=== PATIENT | male | born 2000 | race Two or more races ===

== ENCOUNTER 2023-01-09 09:26 | Emergency (ER) | payer OTHER ==
[~2023-01-09] VITALS: Ht 175.3 cm; Wt 80.7 kg
== END 2023-01-09 12:05 | disposition home or self-care (01) ==
LOC: ER 09:26
PROVIDERS: General Practice
DX: J10.1 Influenza due to other identified influenza virus with other respiratory manifestations (principal); Z20.822 Contact with and (suspected) exposure to COVID-19

== ENCOUNTER 2023-02-24 18:44 | Emergency (ER) | payer OTHER ==
[~2023-02-24] VITALS: Ht 175.3 cm; Wt 83.9 kg
[2023-02-24 20:51] LABS: HEMATOCRIT 48.7 % (39.0-48.0); HEMOGLOBIN 16.6 g/dL (13-16.00); MEAN CELL VOLUME 86.2 fL (80.0-100.00); MEAN CORPUSCULAR HEMOGLOBIN 29.5 pg (27.00-32.0); MEAN CORPUSCULAR HGB CONC 34.2 g/dl (32.0-36.0); PLATELET COUNT 328 K/uL (150-450); RED BLOOD COUNT 5.65 M/uL (4.00-6.00); RED CELL DISTRIBUTION WIDTH 12.9 % (11.5-14.5)
[2023-02-24 21:12] LABS: ALBUMIN 4.9 gm/dL (3.4-5.0); BILIRUBIN TOTAL 0.76 mg/dL (0.3-1.2); CALCIUM 10.2 mg/dL (8.5-10.1); CREATININE SERUM 1.01 mg/dL (0.70-1.30); GFR 92.37; GLOBULINA 3.8 G/DL (2.4-3.5); POTASSIUM 4.08 mEq/L (3.5-5.1); TOTAL PROTEIN 8.7 gm/dL (6.4-8.2)
== END 2023-02-24 21:51 | disposition home or self-care (01) ==
LOC: ER 18:44
PROVIDERS: General Practice
DX: B34.9 Viral infection, unspecified (principal); Z20.822 Contact with and (suspected) exposure to COVID-19

== ENCOUNTER 2024-01-21 16:18 | Outpatient (CLI) | payer OTHER | END 2024-01-21 16:20 | disposition home or self-care (01) | LOC: RAD 16:18 | PROVIDERS: ATTEND General Practice | DX: M25.561 Pain in right knee (principal) ==

== ENCOUNTER 2024-02-02 12:34 | Outpatient (CLI) | payer OTHER ==
[2024-02-02 13:41] LABS: URINE APPEARANCE Clear; URINE BILIRRUBIN Negative (NEGATIVE); URINE BLOOD Negative; URINE COLOR Yellow; URINE GLUCOSE Negative (NEGATIVE); URINE KETONE Trace (NEGATIVE); URINE LEUKOCYTE Negative; URINE NITRATE Negative; URINE PROTEIN Trace (NEGATIVE); URINE UROBILINOGEN 0.2 E.U./dl
[2024-02-02 13:46] LABS: URINE BACTERIA 30.2 uL (0.0-1933); URINE EPITHELIAL CELLS 2.9 uL (0.0-38.8)
[2024-02-02 13:58] LABS: URINE RBC 1.9 uL (0.0-20.8)
== END 2024-02-02 20:20 | disposition home or self-care (01) ==
LOC: LAB 12:34
PROVIDERS: ATTEND General Practice
DX: N39.0 Urinary tract infection, site not specified (principal)

== ENCOUNTER 2024-10-24 22:15 | Emergency (ER) | payer OTHER ==
[~2024-10-24] VITALS: Ht 175.3 cm; Wt 79.4 kg
[2024-10-24] MEDS ORDERED: TETANUS & DIPHTHERIA TOX,ADULT 0.5 ML VIAL IM STA (23:15)
[2024-10-24] MEDS ORDERED: CEFAZOLIN SODIUM 1,000 MG VIAL IM STA (23:15)
[2024-10-24] MEDS ORDERED: KETOROLAC TROMETHAMINE 10 MG TABLET PO STA (23:36)
== END 2024-10-25 | disposition home or self-care (01) ==
LOC: ER 22:42
DX: S01.122A Laceration with foreign body of left eyelid and periocular area, initial encounter (principal); W50.0XXA Accidental hit or strike by another person, initial encounter; Y93.79 Activity, other specified sports and athletics; Y92.89 Other specified places as the place of occurrence of the external cause
CPT/HCPCS: 90471; 90714; J1670

== ENCOUNTER 2024-12-14 07:56 | Emergency (ER) | payer OTHER ==
[~2024-12-14] VITALS: Ht 175.3 cm; Wt 79.4 kg
[2024-12-14] MEDS ORDERED: DEXAMETHASONE SODIUM PHOSPHATE 4 MG/ML VIAL IM ONE (09:00)
[2024-12-14] MEDS ORDERED: KETOROLAC TROMETHAMINE 60 MG VIAL IM ONE (09:00)
[2024-12-14] MEDS ORDERED: IBUPROFEN800 MG PO (09:08)
[2024-12-14] MEDS ORDERED: MEDROLPACK PO (09:08)
== END 2024-12-14 09:21 | disposition home or self-care (01) ==
LOC: ER 07:56
DX: M77.8 Other enthesopathies, not elsewhere classified (principal)

== ENCOUNTER 2025-01-21 14:45 | Emergency (ER) | payer OTHER ==
[~2025-01-21] VITALS: Ht 175.3 cm; Wt 79.4 kg
[~2025-01-21 14:45] MED LIST: ARTHRITIS PAIN150 G1 TOP; DICLOFENAC POTA50 MG PO; IBUPROFEN800 MG PO; MEDROLPACK PO
[2025-01-21] MEDS ORDERED: ACETAMINOPHEN 500 MG GEL..CAP PO ONE ×2 (16:09→16:15)
[2025-01-21] MEDS ORDERED: LACTOBACILLUS ACIDOPHILUS 1 CAP CAP PO ONE ×2 (16:10→16:15)
[2025-01-21] MEDS ORDERED: ONDANSETRON HCL 2 MG/ML VIAL ONE (16:10)
[2025-01-21] MEDS ORDERED: FAMOTIDINE/PF 20 MG/2 ML VIAL ONE (16:11)
[2025-01-21] MEDS ORDERED: ONDANSETRON HCL 2 MG/ML VIAL IV ONE (16:15)
[2025-01-21] MEDS ORDERED: 0.9 % SODIUM CHLORIDE 1,000 ML IV ONE (16:15)
[2025-01-21] MEDS ORDERED: FAMOTIDINE/PF 20 MG/2 ML VIAL IV ONE (16:15)
[2025-01-21 16:43] LABS: BASO % 0.3 % (0.1-1.2); EOS # 0.02 (0.04-0.54); EOS % 0.3 % (0.7-7.0); LYMPH # 0.62 (1.18-3.74); LYMPH % 8.1 % (19.3-53.1); MEAN PLATELET VOLUME 9.90 fl (9.4-12.4); MONO # 0.52 (0.24-0.82); MONO % 6.8 % (4.7-12.5); NEUT # 6.49 (1.56-6.13); NEUT % 84.1 % (34.0-71.1); RED CELL DISTRIBUTION WIDTH 11.5 % (11.6-14.4)
[2025-01-21 17:23] LABS: ALT/SGPT 24.0 U/L (12-78); AST/SGOT 11.0 U/L (15-37); BILIRUBIN TOTAL 0.7 mg/dL (0.3-1.2); BUN CREA RATIO 15.0 (7.0-25.0); CREATININE SERUM 1.03 mg/dL (0.70-1.30); GFR 88.72; GLOBULINA 3.7 G/DL (2.4-3.5); GLUCOSE FASTING 113.0 mg/dL (65-100); OSMOLALITY SERUM 279.0 MOSM/KG (275-295)
[2025-01-21 17:46] LABS: COVID-19 AG NEGATIVE (NEGATIVE)
[2025-01-21 19:27] LABS: URINE APPEARANCE Clear; URINE BILIRRUBIN Negative (NEGATIVE); URINE BLOOD Negative; URINE COLOR Yellow; URINE GLUCOSE Negative (NEGATIVE); URINE KETONE Negative (NEGATIVE); URINE LEUKOCYTE Negative; URINE NITRATE Negative; URINE PROTEIN Negative (NEGATIVE); URINE UROBILINOGEN 0.2 E.U./dl
[2025-01-21 19:31] LABS: URINE BACTERIA 17.9 uL (0.0-1933); URINE EPITHELIAL CELLS 5.9 uL (0.0-38.8); URINE RBC 3.6 uL (0.0-20.8); URINE WBC 5.3 uL (0.0-23.2)
[2025-01-21 19:52] LABS: URINE CAST 0.00 uL (0.0-1.40)
[2025-01-21] MEDS ORDERED: KETOROLAC TROMETHAMINE 30 MG VIAL IV ONE (21:00)
[2025-01-21] MEDS ORDERED: SUCRALFATE 1 G TABLET PO ONE (21:00)
[2025-01-21] MEDS ORDERED: KETOROLAC TROMETHAMINE 30 MG VIAL ONE (21:13)
[2025-01-21] MEDS ORDERED: METOCLOPRAMIDE HCL 5 MG/ML VIAL ONE (22:25)
[2025-01-21] MEDS ORDERED: METOCLOPRAMIDE HCL 5 MG/ML VIAL IV ONE (22:30)
[2025-01-21] MEDS ORDERED: LEVSIN0.125 MG PO (23:26)
[2025-01-21] MEDS ORDERED: PEPCID AC20 MG PO (23:26)
[2025-01-21] MEDS ORDERED: ONDANSETRON HCL8 MG PO (23:26)
[2025-01-21] MEDS ORDERED: INTESTINEX680 M1 PO (23:26)
== END 2025-01-22 00:50 ==
LOC: ER 14:45
PROVIDERS: General Practice
DX: K52.9 Noninfective gastroenteritis and colitis, unspecified (principal); R10.9 Unspecified abdominal pain; R11.2 Nausea with vomiting, unspecified; R50.9 Fever, unspecified; R11.0 Nausea; R11.10 Vomiting, unspecified; Z20.822 Contact with and (suspected) exposure to COVID-19
CPT/HCPCS: 36415; 74177; Q9965

== ENCOUNTER → 2025-04-04 | Emergency (ER) | payer OTHER ==
[~2025-04-04] VITALS: Ht 175.3 cm; Wt 79.4 kg
[~2025-04-04] MED LIST changes: +INTESTINEX680 M1 PO; +KETOROLAC TROMETHAMINE 60 MG VIAL IM ONE; +LEVSIN0.125 MG PO; +NORFLEX100MG PO; +ONDANSETRON HCL8 MG PO; +ORPHENADRINE CITRATE 30 MG/ML AMPUL IM ONE; +ORPHENADRINE CITRATE 30 MG/ML AMPUL ONE; +PEPCID AC20 MG PO
== END | disposition home or self-care (01) ==
LOC: ER 11:54
DX: G89.11 Acute pain due to trauma (principal); M25.531 Pain in right wrist